=== PATIENT | male | born 1990 | race Hispanic/Latino ===

== ENCOUNTER 2017-05-10 00:25 | Inpatient (IN) | payer MEDICAID, OTHER ==
[2017-05-10 00:30] VITALS: O2SAT 98
[2017-05-10 00:36] VITALS: BMI 27.3
--- NOTE | 2017-05-10 00:44 | ED PDOC ---
Psych Transfer Clearance - Clearance Statement Clearance Statement: Reviewed vital signs, lab results and transfer papers. Patient clinically stable for psychiatric admission.
[2017-05-10] MEDS ORDERED: Magnesium Hydroxide Susp 30 ml UD PO PRN (01:17)
[2017-05-10] MEDS ORDERED: Alum-Mag Hydrox-Simethicone Susp (30 mL) PO PRN (01:17)
[2017-05-10] MEDS ORDERED: DiphenhydrAMINE 50 mg/ml Inj IM PRN (01:17)
--- NOTE | 2017-05-10 01:58 | PCM.BM ---
<Silvia Bain - Last Filed: 05/10/17 01:55> Treatment Plan Problems - Problems identified on initial assessmt Self Harm Date Initiated: 05/10/17 Time Initiated: 01:56 Assessment reference: NA Status: Active Hopelessness/ Helplessness Date Initiated: 05/10/17 Time Initiated: 01:56 Assessment reference: NA Status: Active Treatment assets and liabiliti Patient Assests: self-reliant, ADL independent, negotiates basic needs Patient Liabilities: poor support system, relationship conflicts - Milieu Protocol Maintain good personal hygiene: daily Encourage regular showers, every shift Remind patient to perform daily oral care Conduct patient checks and document Observation sheet: Q15 minutes Maintain personal safety: every shift Educate patient to report safety concerns to staff, every shift Monitor environment for contraband/sharps Medication safety: Monitor for expected outcome, potential side effects: every shift, Assess barriers to learning: every shift, Assess readiness for medication education: every shift <Renu Avery - Last Filed: 05/12/17 08:54> Treatment Plan Problems - Problems identified on initial assessmt Ineffective Impulsie Control Date Initiated: 05/12/17 Time Initiated: 08:54 Assessment reference: NA Status: Active
[2017-05-10 08:45] LABS: T4 5.82 ug/dl (5.5-11.0)
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
[2017-05-10] MEDS: Multivitamin With Minerals Tab PO SCH (13:18)
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
--- NOTE | 2017-05-11 10:16 | PCM.PYCHPN ---
Psychiatric Progress Note - Psychiatric Progress Note Patient seen today, length of contact: pt evaluated discussed with team chart reviewed Patient Chief Complaint: I want adderall and xanax I will not take anything else Problems Identified/Issues Discussed: pt on evaluation, angry irritable, loud , verbally threatening, pt demanding to be on stimulants and benzodiazepines for ADHD discussed with pt to be started on wellbutrin and the risk of being on habit forming and addictive medications, pt became angry loud and verbally threatening refusing all his medications and stating he would be jumping off the bridge as soon as he leaves the unit pt has no insight into his illness and not participating in treatment, spending all his time in bed denied active suicidal or homicidal ideations on the unit Medical Problems: unspecified number of hospitalizations for poor impulse control and detoxification DSM 5 Symptoms Update: opiate abuse bipolar disorder Medication Change: Yes (start wellbutrin 75 mg) Medical Record Reviewed: Yes Mental Status Examination - Cognitive Function Orientation: Person, Place Attention: Poor Concentration: Poor Association: WNL Fund of Knowledge: WNL Decription of patient's judgement and insights: impaired insight and poor judgment - Mood Mood: Anxious Additional comments: angry - Affect Affect: Depressed Additional comments: irritable, threatening angry - Speech Speech: Loud Additional comments: threatening angry hypervigilant - Formal Thought Process Formal Thought Process: Circumstantial Psychotic Thoughts and Behaviors: pt denied any current psychotic symptoms, non elicited - Suicidal Ideation Suicidal Ideation: No - Homicidal Ideation Homicidal Ideation: No Goal/Treatment Plan - Goal/Treatment Plan Need for Continued Stay: Severe depression anxiety, Discharge may exacerbated symptoms Progress Toward Problem(s) and Goals/Treatment Plan: continue with clonidine protocol and monitor pt for symptoms and signs of opiate withdrawal continue seroquel for mood stabiliztion neurontin 100mg tid wellbutin 75mg daily encourage medication compliance and participation in treatment motivational and group therapy Estimated Date of D/C: 05/15/17
[2017-05-11] MEDS: Multivitamin With Minerals Tab PO SCH (11:18)
[2017-05-11] MEDS: Levothyroxine 75 MCG TAB PO SCH (14:16)
[2017-05-12] MEDS: Levothyroxine 75 MCG TAB PO SCH (07:22)
[2017-05-12] MEDS: Multivitamin With Minerals Tab PO SCH (08:34)
--- NOTE | 2017-05-12 13:41 | PCM.PYCHPN ---
Psychiatric Progress Note - Psychiatric Progress Note Patient seen today, length of contact: pt evaluated discussed with team chart reviewed Patient Chief Complaint: I need more pain medications Problems Identified/Issues Discussed: pt on evaluation, continues to be angry , irritable, and loud , refusing his current medications, requesting stimulants and opiates, educated pt about the addictive nature of these medications pt refusing to participate in treatment refusing to attend groups, continues to be verbally threatening towards staff denied any current suicidal or homicidal ideations, denied perceptual disturbances shows limited insight into illness Medical Problems: unspecified number of hospitalizations for poor impulse control and detoxification DSM 5 Symptoms Update: opiate use disorder bipolar disorder Medication Change: Yes (start thorazine prn for agitation) Medical Record Reviewed: Yes Mental Status Examination - Cognitive Function Orientation: Person, Place Attention: Poor Concentration: Poor Association: WNL Fund of Knowledge: WNL Decription of patient's judgement and insights: impaired insight and poor judgment - Mood Mood: Anxious - Affect Affect: Depressed - Speech Speech: Loud - Formal Thought Process Formal Thought Process: Circumstantial Psychotic Thoughts and Behaviors: pt denied any current psychotic symptoms, non elicited - Suicidal Ideation Suicidal Ideation: No - Homicidal Ideation Homicidal Ideation: No Goal/Treatment Plan - Goal/Treatment Plan Need for Continued Stay: Severe depression anxiety, Discharge may exacerbated symptoms Progress Toward Problem(s) and Goals/Treatment Plan: continue with clonidine protocol and monitor pt for symptoms and signs of opiate withdrawal continue seroquel for mood stabiliztion neurontin 100mg tid wellbutin 75mg daily encourage medication compliance and participation in treatment motivational and group therapy pt at current mental status refusing treatment, was screened and accepted for involuntary admission for higher level of care and continuity of treatment Estimated Date of D/C: 05/15/17
[2017-05-12 16:29] VITALS: BP 115/83; PULSE 112
[2017-05-12 16:57] VITALS: RESP 18; TEMP 98.1
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
== END 2017-05-13 03:00 | DRG 431 ==
LOC: H.ER 00:25 → H.PSYCH 00:48
PROVIDERS: ADMIT Psychiatry & Neurology Psychiatry; ATTEND Psychiatry & Neurology Psychiatry
PROC: GZ51ZZZ Individual Psychotherapy, Behavioral (ICD-10-PCS; principal; 2017-05-10)
DX: F63.9 Impulse disorder, unspecified (principal); R45.851 Suicidal ideations; F11.14 Opioid abuse with opioid-induced mood disorder; F13.10 Sedative, hypnotic or anxiolytic abuse, uncomplicated; F90.9 Attention-deficit hyperactivity disorder, unspecified type; F31.9 Bipolar disorder, unspecified; Z87.891 Personal history of nicotine dependence; Z98.1 Arthrodesis status; M54.9 Dorsalgia, unspecified; E03.9 Hypothyroidism, unspecified; E29.1 Testicular hypofunction